=== PATIENT | male | born 1995 | race Caucasian/White ===

== ENCOUNTER 2019-04-17 22:59 | Inpatient (IN) | payer OTHER ==
[2019-04-18] MEDS ORDERED: ONDANSETRON 4 MG/2 ML VIAL IVPUSH ONE (00:01)
[2019-04-18] MEDS ORDERED: SODIUM CHLORIDE 0.9% 1000 ML INFUS.BAG IV ONE ×2 (00:01→01:07)
[2019-04-18] MEDS ORDERED: ACETAMINOPHEN 1000 MG/100 ML VIAL (NON FORMULARY) IVPB ONE (00:01)
[2019-04-18] MEDS ORDERED: FAMOTIDINE 20 MG/50 ML IVPB 20 MG/50 ML MG IVPB ONE (00:01)
[2019-04-18] MEDS ORDERED: ACETAMINOPHEN INJECTION 100 ML IVPB ONE (00:16)
[2019-04-18] MEDS ORDERED: ONDANSETRON 4 MG/2 ML VIAL ONE (00:17)
--- NOTE | 2019-04-18 00:31 | PDOC ---
Documentation entered by Leanne Cadena SCRIBE, acting as scribe for Alea Armas DO. Alea Armas DO: This documentation has been prepared by the Tammi murillo Brenda, SCRIBE, under my direction and personally reviewed by me in its entirety. I confirm that the documentation accurately reflects all work, treatment, procedures, and medical decision making performed by me. History of Present Illness - General Chief Complaint: Vomiting/Diarrhea Stated Complaint: STOMACH VIRUS Time Seen by Provider: 04/17/19 23:53 History Source: Patient Exam Limitations: No Limitations - History of Present Illness Initial Comments: 04/18/19 00:23 The patient is a year old male, with no significant PMH who presents to the emergency department with2 days of left abdominal pain accompanied by muscle aches, shortness of breath and 4 episodes of NBNB vomiting and diarrhea. As per patient, he reported taking an advil last night to no relief, and experiencing hot pee. Patient also endorses intermittent back pain, which usually comes when he is laying down. The patient denies sick contacts and recent travel. Denies chest pain, headache and dizziness. Denies fever, chills and constipation. Denies dysuria, frequency , urgency and hematuria. Allergies: NKA Past surgical history: None reported Social history: Former smoker. No alcohol use or illicit drug use. Past History - Past Medical History Allergies/Adverse Reactions: Allergies Allergy/AdvReac Type Severity Reaction Status Date / Time No Known Allergies Allergy Verified 04/17/19 23:06 COPD: No - Psycho Social/Smoking Cessation Hx Smoking History: Former smoker Have you smoked in the past 12 months: No Information on smoking cessation initiated: No Review of Systems - Review of Systems Able to Perform ROS?: Yes Comments:: 04/18/19 00:24 GENERAL/CONSTITUTIONAL: No fever or chills. No weakness. HEAD, EYES, EARS, NOSE AND THROAT: No change in vision. No ear pain or discharge. No sore throat. CARDIOVASCULAR: No chest pain or shortness of breath. RESPIRATORY: No cough, wheezing, or hemoptysis. GASTROINTESTINAL:(+) Vomiting (+) Nausea (+) Diarrhea. (+) Left abdominal pain. No constipation. GENITOURINARY: (+) "Hot" pee. No dysuria, frequency, or change in urination. MUSCULOSKELETAL: (+) Muscle aches. (+) Back pain. No joint or muscle swelling. No neck pain. SKIN: No rash NEUROLOGIC: No headache, vertigo, loss of consciousness, or change in strength/ sensation. ENDOCRINE: No increased thirst. No abnormal weight change. HEMATOLOGIC/LYMPHATIC: No anemia, easy bleeding, or history of blood clots. ALLERGIC/IMMUNOLOGIC: No hives or skin allergy. *Physical Exam - Vital Signs Last Vital Signs Temp Pulse Resp BP Pulse Ox 99.9 F H 122 H 18 128/83 95 04/17/19 23:03 04/17/19 23:03 04/17/19 23:03 04/17/19 23:03 04/17/19 23:03 - Physical Exam Comments: 04/18/19 00:23 GENERAL: (+) Warm to the touch. Awake, alert, and fully oriented, in no acute distress HEAD: No signs of trauma EYES: PERRLA, EOMI, sclera anicteric, conjunctiva clear ENT: Auricles normal inspection, hearing grossly normal, nares patent, oropharynx clear without exudates. Moist mucosa NECK: Normal ROM, supple, no lymphadenopathy, JVD, or masses LUNGS: Breath sounds equal, clear to auscultation bilaterally. No wheezes, and no crackles HEART:(+) Tachycardic. Regular rhythm, normal S1 and S2, no murmurs, rubs or gallops ABDOMEN: (+) Left lower quadrant pain upon palpation. (+) McBurneys point tenderness. (+) Positive rovsings. Soft, normoactive bowel sounds. No guarding , no rebound. No masses EXTREMITIES: Normal range of motion, no edema. No clubbing or cyanosis. No cords, erythema, or tenderness NEUROLOGICAL: Cranial nerves II through XII grossly intact. Normal speech, normal gait SKIN: Warm, Dry, normal turgor, no rashes or lesions noted. ED Treatment Course - LABORATORY CBC & Chemistry Diagram: 04/18/19 00:00 04/18/19 00:00 - RADIOLOGY Radiology Studies Ordered: Category Date Time Status ABDOMEN & PELVIS CT WITH CONTR [CT] Stat CT Scan 04/18/19 00:00 Ordered - Medications Given in the ED: ED Medications Discontinued Medications Generic Name Dose Route Start Last Admin Trade Name Freq PRN Reason Stop Dose Admin Acetaminophen 1,000 mg 04/18/19 00:01 04/18/19 00:20 Ofirmev Injection - IVPB 04/18/19 00:02 1,000 mg ONCE ONE Administration Ondansetron HCl 4 mg 04/18/19 00:01 04/18/19 00:20 Zofran Injection IVPUSH 04/18/19 00:02 4 mg ONCE ONE Administration Sodium Chloride 1,000 ml 04/18/19 00:01 04/18/19 00:20 Normal Saline - IV 04/18/19 00:02 1,000 ml ONCE ONE Administration Medical Decision Making - Medical Decision Making 04/18/19 00:28 a/p: 24yo male with epigastric and RLQ abd pain assoc with n/v/d -pt states pain started after eating a chicken sandwich 2 days ago -nbnb vomiting -took advil last night -had diarrhea starting 2 days ago -4 episodes of vomiting -pain has become worse to RLQ -will send labs, concern for appy - will send for ct -will medicate and reassess -pt has been ambulatory in the ED -no recent abx -no sick contacts -no allergies or prior sx 04/18/19 01:09 pt with elevated bun/cr felix pt with hemoconcentration suspect severe dehydration will cancel ct with iv contrast and order noncon ct will give ivf hydraiton will monitor and reassess need ua 04/18/19 01:20 re-eval: pt states feeling better discussed labs and need for urine discussed ivf hydration discussed change in CT order 04/18/19 01:49 pt will be signed out to the oncoming ED team pending ct read and further eval of felix Discharge - Discharge Information Problems reviewed: Yes Clinical Impression/Diagnosis: FELIX (acute kidney injury), Nausea and vomiting in adult patient, Dehydration, Diarrhea Condition: Guarded - Follow up/Referral Referrals: Veronica Raymond MD [Primary Care Provider] - - Patient Discharge Instructions - Post Discharge Activity
[2019-04-18 00:36] LABS: BASO % 0.5 % (0-2.0); EOS % 0.3 % (0-4.5); HEMATOCRIT 54.2 % (35.4-49); HEMOGLOBIN 18.3 GM/dL (11.7-16.9); LYMPH % 17.1 % (8-40); MCH 31.3 pg (25.7-33.7); MCHC 33.8 g/dl (32.0-35.9); MEAN CELL VOLUME 92.6 fl (80-96); MEAN PLT VOLUME 11.7 fl (7.5-11.1); MONO % 10.7 % (3.8-10.2); NEUT % 71.4 % (42.8-82.8); PLATELET COUNT 204 K/MM3 (134-434); RBC 5.86 M/mm3 (4.00-5.60); RDW 12.9 % (11.9-15.9); WHITE BLOOD COUNT 11.9 K/mm3 (4.0-10.0)
[2019-04-18 01:02] LABS: INR 1.07 (0.83-1.09); PROTHROMBIN TIME (PATIENT) 12.6 SEC (9.7-13.0)
[2019-04-18 01:03] LABS: ALBUMIN 4.8 g/dl (3.4-5.0); BILIRUBIN,TOTAL 0.5 mg/dL (0.2-1); BLOOD UREA NITROGEN 38.1 mg/dL (7-18); CALCIUM 9.7 mg/dL (8.5-10.1); CREATININE 2.7 mg/dL (0.55-1.3); POTASSIUM 3.8 mmol/L (3.5-5.1); TOT PROT 9.3 g/dl (6.4-8.2)
[2019-04-18] MEDS ORDERED: LACTATED RINGERS SOLUTION 1000 ML INFUS.BAG IV ONE ×2 (01:07→01:09)
[2019-04-18 02:02] LABS: EPI CELLS 11.6 /HPF (0-5/HPF); HYALINE CASTS 116 /lpf (0-8); URINE APPEARANCE CLOUDY; URINE BACTERIA 0.7 /hpf (NEGATIVE); URINE BILIRUBIN NEGATIVE (NEGATIVE); URINE COLOR YELLOW; URINE GLUCOSE (UA) NEGATIVE (NEGATIVE); URINE KETONE NEGATIVE (NEGATIVE); URINE LEUK ESTERASE NEGATIVE (NEGATIVE); URINE NITRITE NEGATIVE (NEGATIVE); URINE PROTEIN 1+ (NEGATIVE); URINE RBC 3 /hpf (0-4); URINE UROBILINOGEN 0.2 mg/dL (0.2-1.0)
[2019-04-18 02:36] LABS: URINE WBC 11 /hpf (0-5)
--- NOTE | 2019-04-18 03:52 | PDOC ---
*Physical Exam - Vital Signs Last Vital Signs Temp Pulse Resp BP Pulse Ox 98.3 F 80 18 121/73 96 04/18/19 03:26 04/18/19 03:14 04/18/19 03:14 04/18/19 03:14 04/18/19 03:14 - Physical Exam Comments: 04/18/19 02:[address] Armas at the end of her shift. Patient is a 24 YOM without PMH who has FELIX in setting n/v/d and abdominal discomfort. Patient has no known h/o renal issues and will need to stay given the significant creatinine elevation. Has gotten 4 liters IVF, GI meds, feels much better. Pending CT abdomen/pelvis. ED Treatment Course - LABORATORY CBC & Chemistry Diagram: 04/18/19 00:00 04/18/19 00:00 - ADDITIONAL ORDERS Additional order review: Laboratory Results 04/18/19 04/18/19 04/18/19 01:40 00:00 00:00 PT with INR 12.60 INR 1.07 PTT (Actin FS) Sodium Potassium Chloride Carbon Dioxide Anion Gap BUN Creatinine Est GFR (CKD-EPI)AfAm Est GFR (CKD-EPI)NonAf Random Glucose Lactic Acid Calcium Total Bilirubin AST ALT Alkaline Phosphatase Total Protein Albumin Lipase Urine Color Yellow Urine Appearance Cloudy Urine pH 5.0 Ur Specific [place] 1.022 Urine Protein 1+ H Urine Glucose (UA) Negative Urine Ketones Negative Urine Blood 3+ H Urine Nitrite Negative Urine Bilirubin Negative Urine Urobilinogen 0.2 Ur Leukocyte Esterase Negative Urine WBC (Auto) 11 Urine RBC (Auto) 3 Urine Casts (Auto) 116 U Pathogenic Cast Auto None seen U Epithel Cells (Auto) 11.6 Urine Bacteria (Auto) 0.7 Blood Type O POSITIVE Antibody Screen Negative 04/18/19 04/18/19 04/18/19 00:00 00:00 00:00 PT with INR INR PTT (Actin FS) Sodium 132 L Potassium 3.8 Chloride 100 Carbon Dioxide 17 L Anion Gap 14 BUN 38.1 H Creatinine 2.7 H Est GFR (CKD-EPI)AfAm 36.07 Est GFR (CKD-EPI)NonAf 31.12 Random Glucose 123 H Lactic Acid 1.9 Calcium 9.7 Total Bilirubin 0.5 AST 35 ALT 62 H Alkaline Phosphatase 115 Total Protein 9.3 H Albumin 4.8 Lipase Cancelled 62 L Urine Color Urine Appearance Urine pH Ur Specific [place] Urine Protein Urine Glucose (UA) Urine Ketones Urine Blood Urine Nitrite Urine Bilirubin Urine Urobilinogen Ur Leukocyte Esterase Urine WBC (Auto) Urine RBC (Auto) Urine Casts (Auto) U Pathogenic Cast Auto U Epithel Cells (Auto) Urine Bacteria (Auto) Blood Type Antibody Screen 04/18/19 00:00 PT with INR INR PTT (Actin FS) 35.7 Sodium Potassium Chloride Carbon Dioxide Anion Gap BUN Creatinine Est GFR (CKD-EPI)AfAm Est GFR (CKD-EPI)NonAf Random Glucose Lactic Acid Calcium Total Bilirubin AST ALT Alkaline Phosphatase Total Protein Albumin Lipase Urine Color Urine Appearance Urine pH Ur Specific [place] Urine Protein Urine Glucose (UA) Urine Ketones Urine Blood Urine Nitrite Urine Bilirubin Urine Urobilinogen Ur Leukocyte Esterase Urine WBC (Auto) Urine RBC (Auto) Urine Casts (Auto) U Pathogenic Cast Auto U Epithel Cells (Auto) Urine Bacteria (Auto) Blood Type Antibody Screen 04/18/19 00:00 RBC 5.86 H MCV 92.6 MCHC 33.8 RDW 12.9 MPV 11.7 H Neutrophils % 71.4 Lymphocytes % 17.1 Monocytes % 10.7 H Eosinophils % 0.3 Basophils % 0.5 - Medications Given in the ED: ED Medications Discontinued Medications Generic Name Dose Route Start Last Admin Trade Name Meg PRN Reason Stop Dose Admin Acetaminophen 1,000 mg 04/18/19 00:01 04/18/19 00:20 Ofirmev Injection - IVPB 04/18/19 00:02 1,000 mg ONCE ONE Administration Famotidine/Sodium Chloride 20 mg in 50 mls @ 100 mls/hr 04/18/19 00:01 01:06 Pepcid 20 Mg Premixed Ivpb - IVPB 04/18/19 00:30 100 mls/hr ONCE ONE Administration Lactated Ringer's 1,000 ml 04/18/19 01:07 04/18/19 03:25 Lactated Ringers Solution IV 04/18/19 01:08 1,000 ml ONCE ONE Administration Lactated Ringer's 1,000 ml 04/18/19 01:09 04/18/19 01:10 Lactated Ringers Solution IV 04/18/19 01:10 1,000 ml ONCE ONE Administration Ondansetron HCl 4 mg 04/18/19 00:01 04/18/19 00:20 Zofran Injection IVPUSH 04/18/19 00:02 4 mg ONCE ONE Administration Sodium Chloride 1,000 ml 04/18/19 00:01 04/18/19 00:20 Normal Saline - IV 04/18/19 00:02 1,000 ml ONCE ONE Administration Sodium Chloride 1,000 ml 04/18/19 01:07 04/18/19 02:17 Normal Saline - IV 04/18/19 01:08 1,000 ml ONCE ONE Administration Medical Decision Making - Medical Decision Making 04/18/19 03:51 THIS IS A PRELIMINARY REPORT FROM [facility] DATE OF SERVICE: 2019-04-18 01:21:07 IMAGES: [id number] EXAM: CT ABDOMEN without contrast and CT PELVIS W/O CONTR HISTORY: 24-Year-Old Male Right Lower Quadrant Abdominal Pain. COMPARISON: None. FINDINGS: Lack of intravenous contrast limits this exam. Lack of oral contrast limits this exam. Lung bases are clear. Mild liver steatosis. Mild nonspecific splenomegaly. Noncontrast evaluation pancreas adrenal glands kidneys appear unremarkable. No nephrolithiasis or hydronephrosis. Noncontrast evaluation stomach small bowel and appendix appear unremarkable. No appendicitis. Diverticulosis without diverticulitis. Bladder and prostate appear unremarkable. No free air. No free fluid. No abscess. Subcentimeter mesenteric lymph nodes may be due to mesenteric adenitis. Mild degenerative disc disease in the lower lumbar spine. Small umbilical hernia omental fat without incarceration. IMPRESSION: Mild liver steatosis. Nonspecific mild splenomegaly. Diverticulosis without diverticulitis. Subcentimeter mesenteric lymph nodes may be due to mesenteric adenitis. Mild degenerative disc disease in the lower lumbar spine. Small umbilical hernia omental fat without incarceration. This CT exam was performed using one or more of the following dose reduction techniques: automated exposure control, adjustment of the mA and/or kV according to patient size, use of iterative reconstruction technique. 04/18/19 04:08 The Pt is unsafe for discharge at this time. They require further hospital observation, workup, and treatment. Microblog sent to [facility] for admission. Blank Decision to Admit order is placed per ED protocol. Discharge - Discharge Information Problems reviewed: Yes Clinical Impression/Diagnosis: FELIX (acute kidney injury), Nausea and vomiting in adult patient, Dehydration, Diarrhea Condition: Guarded - Admission Yes - Follow up/Referral Referrals: Veronica Raymond MD [Primary Care Provider] - - Patient Discharge Instructions - Post Discharge Activity
--- NOTE | 2019-04-18 04:55 | PN ---
Teaching Attending Note Name of Resident: Joy Calvin ATTENDING PHYSICIAN STATEMENT I saw and evaluated the patient. I reviewed the resident's note and discussed the case with the resident. I agree with the resident's findings and plan as documented. SUBJECTIVE: 24yo man previously healthy reports 48hrs of nausea continuos nonbloody/ nonbilious vomiting, continuous loose stools after he ate a chicken sandwich. Found to be tachycardic and have low grade fever in ER. No recent travels, no sick contacts. OBJECTIVE: Last Vital Signs Temp Pulse Resp BP Pulse Ox 98.3 F 80 18 121/73 96 04/18/19 03:26 04/18/19 03:14 04/18/19 03:14 04/18/19 03:14 04/18/19 03:14 gen -nontoxic heent- at, nc neck supple cv s1+s2+rrr chest clear abd- soft nt, bs+ skin- dry Abnormal Lab Results 04/18/19 04/18/19 04/18/19 00:00 00:00 01:40 WBC 11.9 H RBC 5.86 H Hgb 18.3 H Hct 54.2 H MPV 11.7 H Absolute Neuts (auto) 8.5 H Monocytes % 10.7 H Sodium 132 L Carbon Dioxide 17 L BUN 38.1 H Creatinine 2.7 H Random Glucose 123 H ALT 62 H Total Protein 9.3 H Lipase 62 L Urine Protein 1+ H Urine Blood 3+ H abd/pelvis ct reviewed - +diverticulosis, neg for appendicitis ASSESSMENT AND PLAN: gastroenteritis with severe dehydration, hemoconcentration and felix. FELIX likely prerenal Elactrolyte disturbances -hyponatremia, borderline hypocholeremia likely from vomiting. S/p multiple bags IV NS, LR in ER. -med/surg -i/o -avoid nephrotoxins -calculate fena - urine cr, na -iv fluid hydration -no antibiotics -zofran iv prn -tylenol for abdominal pain -dvt ppx -scds
[2019-04-18] MEDS ORDERED: SODIUM CHLORIDE 1,000 ML IV SCH (05:15)
[2019-04-18] MEDS ORDERED: HEPARIN NA (PORCINE) 5,000 UNITS/ML 1ML VIAL SQ SCH (06:00)
[2019-04-18] MEDS ORDERED: HEPARIN NA (PORCINE) 5,000 UNITS/ML 1ML VIAL ONE (06:28)
--- NOTE | 2019-04-18 06:28 | HP ---
CHIEF COMPLAINT: LLQ abd pain PCP: Dr. Raymond HISTORY OF PRESENT ILLNESS: 24 y.o. M no significant PMH presenting with LLQ abdominal pain. The pain began after eating a chicken salad sandwich yesterday around 7pm. The phan began in LLQ and migrated to epigastrium; 6/10, dull, intermittent, exacerbated with movement. Also endorses 4x episodes NBNB vomiting, nausea, vomiting and green diarrhea. Pt took tylenol last night with no relief of his symptoms. No exacerbating factors. Has never had these symptoms in the past. On ROS: + nausea, vomiting, diarrhea, generalized weakness denies chest pain/ sob/ headaches/ chills/ hematuria/ dysuria ER course was notable for: (1) NS 1L x 2, LR 1L x 2-- 4L total (2) 1g iv tylenol (3)20mg pepsid, 4mg zofran iv Recent Travel: denies PAST MEDICAL HISTORY: as per hpi PAST SURGICAL HISTORY: none Social History: lives w/ his parents and girlfriend. has 2 children. no sick contacts Smoking: social cigarette use Alcohol: socially Drugs: denies Allergies No Known Allergies Allergy (Verified 04/17/19 23:06) Family Hx: none HOME MEDICATIONS: Home Medications Medication Instructions Recorded NK [No Known Home Medication] 04/18/19 PHYSICAL EXAMINATION Vital Signs - 24 hr 04/17/19 04/18/19 04/18/19 23:03 03:14 03:26 Temperature 99.9 F H 98.3 F Pulse Rate 122 H Pulse Rate [ 80 Right Radial] Respiratory 18 18 Rate Blood Pressure 128/83 Blood Pressure 121/73 [Right Arm] O2 Sat by Pulse 95 96 Oximetry (%) GENERAL: Awake, alert, and fully oriented, in no acute distress. HEENT: NCAT. no scleral icterus. LUNGS: CTABL no incr work of breathing. No w/r/r HEART: Tachycardic. No murmurs. ABDOMEN: Soft, nontender, not distended, normoactive bowel sounds, no guarding, no rebound, no masses. Negative mcburneys, negative murphys. MUSCULOSKELETAL: Good ROM all joints. No CVA tenderness. EXTR: 2+ pulses palpated b/l UE & LE, no peipheral edema PSYCHIATRIC: Appropriate mood and affect. SKIN: no rashes/ lesions noted Laboratory Results - last 24 hr 04/18/19 04/18/19 04/18/19 00:00 00:00 00:00 WBC 11.9 H RBC 5.86 H Hgb 18.3 H Hct 54.2 H MCV 92.6 MCH 31.3 MCHC 33.8 RDW 12.9 Plt Count 204 MPV 11.7 H Absolute Neuts (auto) 8.5 H Neutrophils % 71.4 Lymphocytes % 17.1 Monocytes % 10.7 H Eosinophils % 0.3 Basophils % 0.5 Nucleated RBC % 0 PT with INR INR PTT (Actin FS) 35.7 Sodium 132 L Potassium 3.8 Chloride 100 Carbon Dioxide 17 L Anion Gap 14 BUN 38.1 H Creatinine 2.7 H Est GFR (CKD-EPI)AfAm 36.07 Est GFR (CKD-EPI)NonAf 31.12 Random Glucose 123 H Lactic Acid Calcium 9.7 Total Bilirubin 0.5 AST 35 ALT 62 H Alkaline Phosphatase 115 Total Protein 9.3 H Albumin 4.8 Lipase 62 L Urine Color Urine Appearance Urine pH Ur Specific [place] Urine Protein Urine Glucose (UA) Urine Ketones Urine Blood Urine Nitrite Urine Bilirubin Urine Urobilinogen Ur Leukocyte Esterase Urine WBC (Auto) Urine RBC (Auto) Urine Casts (Auto) U Pathogenic Cast Auto U Epithel Cells (Auto) Urine Bacteria (Auto) Blood Type Antibody Screen 04/18/19 04/18/19 04/18/19 00:00 00:00 00:00 WBC RBC Hgb Hct MCV MCH MCHC RDW Plt Count MPV Absolute Neuts (auto) Neutrophils % Lymphocytes % Monocytes % Eosinophils % Basophils % Nucleated RBC % PT with INR 12.60 INR 1.07 PTT (Actin FS) Sodium Potassium Chloride Carbon Dioxide Anion Gap BUN Creatinine Est GFR (CKD-EPI)AfAm Est GFR (CKD-EPI)NonAf Random Glucose Lactic Acid 1.9 Calcium Total Bilirubin AST ALT Alkaline Phosphatase Total Protein Albumin Lipase Cancelled Urine Color Urine Appearance Urine pH Ur Specific [place] Urine Protein Urine Glucose (UA) Urine Ketones Urine Blood Urine Nitrite Urine Bilirubin Urine Urobilinogen Ur Leukocyte Esterase Urine WBC (Auto) Urine RBC (Auto) Urine Casts (Auto) U Pathogenic Cast Auto U Epithel Cells (Auto) Urine Bacteria (Auto) Blood Type Antibody Screen 04/18/19 04/18/19 00:00 01:40 WBC RBC Hgb Hct MCV MCH MCHC RDW Plt Count MPV Absolute Neuts (auto) Neutrophils % Lymphocytes % Monocytes % Eosinophils % Basophils % Nucleated RBC % PT with INR INR PTT (Actin FS) Sodium Potassium Chloride Carbon Dioxide Anion Gap BUN Creatinine Est GFR (CKD-EPI)AfAm Est GFR (CKD-EPI)NonAf Random Glucose Lactic Acid Calcium Total Bilirubin AST ALT Alkaline Phosphatase Total Protein Albumin Lipase Urine Color Yellow Urine Appearance Cloudy Urine pH 5.0 Ur Specific [place] 1.022 Urine Protein 1+ H Urine Glucose (UA) Negative Urine Ketones Negative Urine Blood 3+ H Urine Nitrite Negative Urine Bilirubin Negative Urine Urobilinogen 0.2 Ur Leukocyte Esterase Negative Urine WBC (Auto) 11 Urine RBC (Auto) 3 Urine Casts (Auto) 116 U Pathogenic Cast Auto None seen U Epithel Cells (Auto) 11.6 Urine Bacteria (Auto) 0.7 Blood Type O POSITIVE Antibody Screen Negative ASSESSMENT/PLAN: 24 y.o. M no significant PMH presenting with LLQ abdominal pain #Viral gastroenteritis -temp 99.7F; WBC 12 -c/w IVF -no abx at this time -zofran prn for nausea/vomiting -F/u cultures #FELIX -C/w IVF -F/u urine lytes, Calc FeNa -Avoid nephrotoxic meds #Hemoconcentration -likely 2/2 dehydration -f/u AM cbc #FEN -C/w IVF NS @75mL/ hr -Hypochloremic-- likely 2/2 emesis -NPO #DVT PPX -heparin sq Visit type - Emergency Visit Emergency Visit: Yes ED Registration Date: 04/18/19 Care time: The patient presented to the Emergency Department on the above date and was hospitalized for further evaluation of their emergent condition. - New Patient This patient is new to me today: Yes Date on this admission: 04/18/19 - Critical Care Critical Care patient: No ATTENDING PHYSICIAN STATEMENT I saw and evaluated the patient. I reviewed the resident's note and discussed the case with the resident. I agree with the resident's findings and plan as documented. SUBJECTIVE: OBJECTIVE: ASSESSMENT AND PLAN:
[2019-04-18 06:48] LABS: HEMATOCRIT 41.5 % (35.4-49); HEMOGLOBIN 14.7 GM/dL (11.7-16.9); MCH 32.2 pg (25.7-33.7); MCHC 35.4 g/dl (32.0-35.9); MEAN CELL VOLUME 91.1 fl (80-96); MEAN PLT VOLUME 10.7 fl (7.5-11.1); PLATELET COUNT 139 K/MM3 (134-434); RBC 4.56 M/mm3 (4.00-5.60); WHITE BLOOD COUNT 6.7 K/mm3 (4.0-10.0)
[2019-04-18 07:25] LABS: ALBUMIN 3.5 g/dl (3.4-5.0); BILIRUBIN,TOTAL 0.5 mg/dL (0.2-1); BLOOD UREA NITROGEN 20.9 mg/dL (7-18); CALCIUM 8.6 mg/dL (8.5-10.1); CREATININE 1.1 mg/dL (0.55-1.3); MAGNESIUM 1.8 mg/dL (1.8-2.4); PHOSPHOROUS 3.6 mg/dL (2.5-4.9); POTASSIUM 3.7 mmol/L (3.5-5.1)
--- NOTE | 2019-04-18 11:34 | DS ---
Physical Exam: SUBJECTIVE: Patient seen and examined OBJECTIVE: Vital Signs Period Temp Pulse Resp BP Sys/Lieberman Pulse Ox Last 24 Hr 98.2 F-99.9 F 71-122 16-18 119-128/70-83 95-96 PHYSICAL EXAM GENERAL: The patient is awake, alert, and fully oriented, in no acute distress. HEAD: Normal with no signs of trauma. EYES: PERRL, extraocular movements intact, sclera anicteric, conjunctiva clear. ENT: Ears normal, nares patent, oropharynx clear without exudates, moist mucous membranes. NECK: Trachea midline, full range of motion, supple. LUNGS: Breath sounds equal, clear to auscultation bilaterally, no wheezes, no crackles, no accessory muscle use. HEART: Regular rate and rhythm, S1, S2 without murmur, rub or gallop. ABDOMEN: Soft, nontender, nondistended, normoactive bowel sounds, no guarding, no rebound, no hepatosplenomegaly, no masses. EXTREMITIES: 2+ pulses, warm, well-perfused, no edema. NEUROLOGICAL: Cranial nerves II through XII grossly intact. Normal speech, gait not observed. PSYCH: Normal mood, normal affect. SKIN: Warm, dry, normal turgor, no rashes or lesions noted. LABS Laboratory Results - last 24 hr 04/18/19 04/18/19 04/18/19 00:00 00:00 00:00 WBC 11.9 H RBC 5.86 H Hgb 18.3 H Hct 54.2 H MCV 92.6 MCH 31.3 MCHC 33.8 RDW 12.9 Plt Count 204 MPV 11.7 H Absolute Neuts (auto) 8.5 H Neutrophils % 71.4 Lymphocytes % 17.1 Monocytes % 10.7 H Eosinophils % 0.3 Basophils % 0.5 Nucleated RBC % 0 PT with INR INR PTT (Actin FS) 35.7 Sodium 132 L Potassium 3.8 Chloride 100 Carbon Dioxide 17 L Anion Gap 14 BUN 38.1 H Creatinine 2.7 H Est GFR (CKD-EPI)AfAm 36.07 Est GFR (CKD-EPI)NonAf 31.12 Random Glucose 123 H Hemoglobin A1c % Lactic Acid Calcium 9.7 Phosphorus Magnesium Total Bilirubin 0.5 AST 35 ALT 62 H Alkaline Phosphatase 115 Total Protein 9.3 H Albumin 4.8 Lipase 62 L Urine Color Urine Appearance Urine pH Ur Specific [place] Urine Protein Urine Glucose (UA) Urine Ketones Urine Blood Urine Nitrite Urine Bilirubin Urine Urobilinogen Ur Leukocyte Esterase Urine WBC (Auto) Urine RBC (Auto) Urine Casts (Auto) U Pathogenic Cast Auto U Epithel Cells (Auto) Urine Bacteria (Auto) Blood Type Antibody Screen 04/18/19 04/18/19 04/18/19 00:00 00:00 00:00 WBC RBC Hgb Hct MCV MCH MCHC RDW Plt Count MPV Absolute Neuts (auto) Neutrophils % Lymphocytes % Monocytes % Eosinophils % Basophils % Nucleated RBC % PT with INR 12.60 INR 1.07 PTT (Actin FS) Sodium Potassium Chloride Carbon Dioxide Anion Gap BUN Creatinine Est GFR (CKD-EPI)AfAm Est GFR (CKD-EPI)NonAf Random Glucose Hemoglobin A1c % Lactic Acid 1.9 Calcium Phosphorus Magnesium Total Bilirubin AST ALT Alkaline Phosphatase Total Protein Albumin Lipase Cancelled Urine Color Urine Appearance Urine pH Ur Specific [place] Urine Protein Urine Glucose (UA) Urine Ketones Urine Blood Urine Nitrite Urine Bilirubin Urine Urobilinogen Ur Leukocyte Esterase Urine WBC (Auto) Urine RBC (Auto) Urine Casts (Auto) U Pathogenic Cast Auto U Epithel Cells (Auto) Urine Bacteria (Auto) Blood Type Antibody Screen 04/18/19 04/18/19 04/18/19 00:00 01:40 06:35 WBC RBC Hgb Hct MCV MCH MCHC RDW Plt Count MPV Absolute Neuts (auto) Neutrophils % Lymphocytes % Monocytes % Eosinophils % Basophils % Nucleated RBC % PT with INR INR PTT (Actin FS) Sodium Potassium Chloride Carbon Dioxide Anion Gap BUN Creatinine Est GFR (CKD-EPI)AfAm Est GFR (CKD-EPI)NonAf Random Glucose Hemoglobin A1c % Lactic Acid Calcium Phosphorus Magnesium Total Bilirubin AST ALT Alkaline Phosphatase Total Protein Albumin Lipase Urine Color Yellow Urine Appearance Cloudy Urine pH 5.0 Ur Specific [place] 1.022 Urine Protein 1+ H Urine Glucose (UA) Negative Urine Ketones Negative Urine Blood 3+ H Urine Nitrite Negative Urine Bilirubin Negative Urine Urobilinogen 0.2 Ur Leukocyte Esterase Negative Urine WBC (Auto) 11 Urine RBC (Auto) 3 Urine Casts (Auto) 116 U Pathogenic Cast Auto None seen U Epithel Cells (Auto) 11.6 Urine Bacteria (Auto) 0.7 Blood Type O POSITIVE O POSITIVE Antibody Screen Negative 04/18/19 04/18/19 04/18/19 06:35 06:35 06:35 WBC 6.7 RBC 4.56 Hgb 14.7 Hct 41.5 D MCV 91.1 MCH 32.2 MCHC 35.4 RDW 13.0 Plt Count 139 D MPV 10.7 Absolute Neuts (auto) Neutrophils % Lymphocytes % Monocytes % Eosinophils % Basophils % Nucleated RBC % PT with INR INR PTT (Actin FS) Sodium 138 Potassium 3.7 Chloride 109 H Carbon Dioxide 21 Anion Gap 8 BUN 20.9 H Creatinine 1.1 Est GFR (CKD-EPI)AfAm 106.81 Est GFR (CKD-EPI)NonAf 92.16 Random Glucose 104 Hemoglobin A1c % 5.4 Lactic Acid Calcium 8.6 Phosphorus 3.6 Magnesium 1.8 Total Bilirubin 0.5 AST 24 ALT 45 Alkaline Phosphatase 85 Total Protein 7.0 Albumin 3.5 Lipase Urine Color Urine Appearance Urine pH Ur Specific [place] Urine Protein Urine Glucose (UA) Urine Ketones Urine Blood Urine Nitrite Urine Bilirubin Urine Urobilinogen Ur Leukocyte Esterase Urine WBC (Auto) Urine RBC (Auto) Urine Casts (Auto) U Pathogenic Cast Auto U Epithel Cells (Auto) Urine Bacteria (Auto) Blood Type Antibody Screen HOSPITAL COURSE: Date of Admission:04/18/19 Date of Discharge: 04/18/19 Discharge Summary Problems reviewed: Yes Reason For Visit: ACUTE KIDNEY INJURY, DIARRHEA, NAUSEA AND VOMITING Current Active Problems FELIX (acute kidney injury) (Acute) Dehydration (Acute) Diarrhea (Acute) Nausea and vomiting in adult patient (Acute) Condition: Improved - Instructions Diet, Activity, Other Instructions: You were seen here due to your abdominal pain and your vomiting episodes. You received a CAT scan which did not show any concerning problems in your intestines or stomach. You were given fluid overnight and likely have gastroenteritis. MEDICATIONS: Please stay hydrated and eat foods as tolerated. Follow-up: Please follow-up with Dr. Goode within 1 week to update her on your stay here. She will need to order an MRI to evaluate your pancreas as there was a spot noticed on it from the CAT scan Dr. Irizarry (gastorenterology) information has been provided to follow-up after you have received the MRI if you need. Referrals: Vahe Irizarry DO [Staff Physician] - (1-2 weeks) Veronica Raymond MD [Primary Care Provider] - Disposition: HOME - Home Medications Comprehensive Discharge Medication List: Ambulatory Orders NK [No Known Home Medication] 04/18/19 ATTENDING PHYSICIAN STATEMENT I saw and evaluated the patient. I reviewed the resident's note and discussed the case with the resident. I agree with the resident's findings and plan as documented. SUBJECTIVE: OBJECTIVE: ASSESSMENT AND PLAN:
[2019-04-18] MEDS ORDERED: PANTOPRAZOLE 40 MG TABLET (FP) PO ONE (12:00)
[2019-04-18 12:02] VITALS: BP 130/72; PULSE 67; TEMP 98.1; BMI 28.8
--- NOTE | 2019-04-18 12:42 | EKG ---
Test Reason : Blood Pressure : / mmHG Vent. Rate : 070 BPM Atrial Rate : 070 BPM P-R Int : 138 ms QRS Dur : 090 ms QT Int : 398 ms P-R-T Axes : 012 -11 006 degrees QTc Int : 429 ms NORMAL SINUS RHYTHM NORMAL ECG NO PREVIOUS ECGS AVAILABLE Confirmed by BETHANY HAYS MD ([id number]) on 04/18/2019 12:42:19 PM Referred By: Confirmed By:BETHANY HAYS MD
== END 2019-04-18 13:34 | disposition home or self-care (01) | DRG 249 ==
LOC: JER 22:59 → JERBED 04-18 03:56 → J8W 04-18 11:11
PROVIDERS: ADMIT Internal Medicine; ATTEND Internal Medicine
DX: A08.4 Viral intestinal infection, unspecified (principal); E86.0 Dehydration; R11.2 Nausea with vomiting, unspecified; N17.9 Acute kidney failure, unspecified; E87.8 Other disorders of electrolyte and fluid balance, not elsewhere classified
CPT/HCPCS: 36415; 74176-TC; 80053; 81003; 83036; 83605; 83690; 83735; 84100; 85025; 85027; 85610; 85730; 86850; 86900; 86901; 87086; 93005; 93010; 99284-25; J0131; J1644; J7030